=== PATIENT | male | born 1955 | race Caucasian/White ===

== ENCOUNTER → 2023-02-01 12:19 | Outpatient (CLI) | payer MEDICARE, SELFPAY ==
--- NOTE | 2023-02-01 | DI.US.S_ITS ---
PROCEDURE: US ABDOMEN LIMITED INDICATIONS: Unilateral inguinal hernia, without obstruction TECHNIQUE: Real-time focused scanning was performed of the abdomen, with image documentation. Color Doppler was also utilized. COMPARISON: None. FINDINGS: There is a bowel containing hernia within the right inguinal canal. The hernia orifice measures 1.9 cm. There is movement with Valsalva maneuver. IMPRESSION: Bowel containing right inguinal hernia. Surgical consultation is recommended. If clinically appropriate, a dedicated CT of the pelvis with at least IV contrast could also be considered. Dictated by: Ben Nunez M.D. on 02/01/2023 at 15:25 Approved by: Ben Nunez M.D. on 02/01/2023 at 15:26
== END ==
PROVIDERS: PCP Family Medicine; Referring Provider Family Medicine; Visit Provider Family Medicine
DX: K40.90 Unilateral inguinal hernia, without obstruction or gangrene, not specified as recurrent (principal)
CPT/HCPCS: 76705